=== PATIENT | female | born 1960 | race American Indian/Alaskan Native ===

== ENCOUNTER 2017-01-15 14:42 | Emergency (ER) | payer SELFPAY ==
--- NOTE | 2017-01-15 15:16 | Emergency Department Report ---
Stated Complaint: HEADACHE/COUGHING Time Seen by Provider: 01/15/17 15:11 - HPI History of Present Illness: PT c/o lower back pain Productive cough and headache - ROS Review of Systems: + clear urine + edema to R knee, + bere ankle edema + sob + 9/10 headache - Exam Physical Exam: GCS 15 dry cough noted no acute resp distress MSE screening note: Focused history and physical exam performed. Due to findings the following was ordered: ct, xr, lab ED Disposition for MSE Condition: Stable
[2017-01-15] MEDS: TYLENOL PO ONE (15:20)
[2017-01-15] MEDS ORDERED: TYLENOL ONE (15:23)
[2017-01-15 15:50] LABS: Basophils % (Auto) 0.4 % (0.0-1.8); Eosinophils % (Auto) 0.6 % (0.0-4.3); Hematocrit 39.3 % (30.3-42.9); Hemoglobin 12.5 gm/dl (10.1-14.3); Mean Corpuscular HGB Conc 32 % (30-34); Mean Corpuscular Hemoglobin 25 pg (28-32); Mean Corpuscular Volume 79 fl (79-97); Platelet Count 237 K/mm3 (140-440); Red Blood Count 4.96 M/mm3 (3.65-5.03); Red Cell Distribution Width 16.1 % (13.2-15.2); White Blood Count 6.9 K/mm3 (4.5-11.0)
[2017-01-15 16:06] LABS: Alanine Aminotransferase 9 units/L (7-56); Albumin 3.8 g/dL (3.9-5); Albumin/Globulin Ratio 1.4 %; Alkaline Phosphatase 76 units/L (35-129); Anion Gap 18 mmol/L; Blood Urea Nitrogen 5 mg/dL (7-17); Calcium 8.7 mg/dL (8.4-10.2); Carbon Dioxide 25 mmol/L (22-30); Chloride 100.4 mmol/L (98-107); Glucose 179 mg/dL (65-100); Potassium 4.1 mmol/L (3.6-5.0); Sodium 139 mmol/L (137-145); Total Protein 6.6 g/dL (6.3-8.2)
[2017-01-15 16:47] LABS: Bilirubin,Urine NEG (Negative); Blood,Urine SM (Negative); Ketones,Urine NEG (Negative); Leukocyte Esterase,Urine MOD (Negative); Mucus,Urine FEW /HPF; Nitrite,Urine NEG (Negative); Urobilinogen,Urine < 2.0 mg/dL (<2.0)
--- NOTE | 2017-01-15 16:58 | Cat Scan Report ---
FINAL REPORT EXAM: CT HEAD/BRAIN WO CON HISTORY: htn, headache, lightheaded TECHNIQUE: CT head without contrast PRIORS: None. FINDINGS: No acute intra-axial or extra-axial hemorrhage is identified. There is no evidence of midline shift or mass effect. The ventricles and sulci are within normal limits. Sosa-white matter differentiation is intact. No acute parenchymal abnormalities seen. There is a focal hypodense density left periventricular white matter measuring 0.6 centimeters likely reflecting a remote lacunar infarct Bony calvarium is grossly intact. Visualized portions of the mastoids and paranasal sinuses are unremarkable. IMPRESSION: Remote lacunar infarct within the left periventricular white matter No acute abnormality identified
[2017-01-16 00:31] VITALS: BP 171/76
--- NOTE | 2017-01-16 00:36 | Emergency Department Report ---
ED Headache HPI - General Chief Complaint: Headache Stated Complaint: HEADACHE/COUGHING Time Seen by Provider: 01/15/17 15:11 Source: patient - History of Present Illness Initial Comments: 56-year-old female history of diabetes and high blood pressure presented with headache started yesterday. Patient also complaining of cough and shortness of breath. No other complaint. Patient denied any nausea or vomiting no diarrhea no abdominal pain or chest pain. Quality: moderate Recent Head Trauma: no recent headache/trauma Associated Symptoms: denies symptoms Allergies/Adverse Reactions: Allergies No Known Allergies Allergy (Verified 02/14/15 06:35) Home Medications: Ambulatory Orders metFORMIN [Glucophage] 500 mg PO QDAY #30 tab 02/14/15 glipiZIDE [Glucotrol] 5 mg PO BID #60 tablet 04/23/15 Levofloxacin [Levaquin TAB] 500 mg PO QDAY #7 tablet 01/16/17 P-Ephed HCl/Codeine/Guaifen [Cheratussin DAC 30-10-100 mg/5 ml] 10 ml PO Q4H PRN #100 ml 01/16/17 ED Review of Systems ROS: Stated complaint: HEADACHE/COUGHING Other details as noted in HPI Comment: All other systems reviewed and negative Constitutional: fever. denies: chills Respiratory: cough, shortness of breath. denies: SOB with exertion, SOB at rest Cardiovascular: denies: chest pain, palpitations Gastrointestinal: denies: abdominal pain, nausea, vomiting ED Past Medical Hx - Past Medical History Hx Diabetes: Yes (noncompliant with metformin) Additional medical history: Cholelithiasis,viral meningitis - Social History Smoking Status: Never Smoker Substance Use Type: None - Medications Home Medications: Home Medications Medication Instructions Recorded Confirmed Last Taken Type metFORMIN [Glucophage] 500 mg PO QDAY #30 tab 02/14/15 04/23/15 04/21/15 Rx glipiZIDE [Glucotrol] 5 mg PO BID #60 tablet 04/23/15 Unknown Rx Levofloxacin [Levaquin TAB] 500 mg PO QDAY #7 tablet 01/16/17 Unknown Rx P-Ephed HCl/Codeine/Guaifen 10 ml PO Q4H PRN #100 ml 01/16/17 Unknown Rx [Cheratussin DAC 30-10-100 mg/5 ml] ED Physical Exam - General Limitations: No Limitations General appearance: alert - Head Head exam: Present: atraumatic - Eye Eye exam: Present: normal appearance - ENT ENT exam: Present: normal exam - Neck Neck exam: Present: normal inspection, full ROM. Absent: tenderness, meningismus, lymphadenopathy, thyromegaly - Respiratory Respiratory exam: Present: decreased breath sounds, prolonged expiratory. Absent: respiratory distress, wheezes, rales, rhonchi, stridor - Cardiovascular Cardiovascular Exam: Present: regular rate, normal rhythm, normal heart sounds - GI/Abdominal GI/Abdominal exam: Present: soft. Absent: distended, tenderness, guarding, rebound, rigid, mass, pulsatile mass - Back Exam Back exam: Present: normal inspection. Absent: CVA tenderness (R), CVA tenderness (L) - Neurological Exam Neurological exam: Present: alert, oriented X3, CN II-XII intact, normal gait, reflexes normal. Absent: motor sensory deficit - Skin Skin exam: Present: warm, intact, normal color ED Course Vital Signs 01/15/17 01/15/17 01/15/17 15:13 15:20 23:06 Temperature 99.3 F 100.1 F H Pulse Rate 86 88 Respiratory 20 18 20 Rate Blood Pressure 165/74 165/73 Blood Pressure [Right] O2 Sat by Pulse 95 98 Oximetry 01/16/17 00:30 Temperature 102.5 F H Pulse Rate 100 H Respiratory 16 Rate Blood Pressure Blood Pressure 171/76 [Right] O2 Sat by Pulse 100 Oximetry - Reevaluation(s) Reevaluation #1: 01/16/17 01:55 Patient stated that she is feeling much better will discharge home with Levaquin and follow-up as a primary care physician. ED Medical Decision Making - Lab Data Result diagrams: 01/15/17 15:31 01/15/17 15:31 Critical care attestation.: If time is entered above; I have spent that time in minutes in the direct care of this critically ill patient, excluding procedure time. ED Disposition Clinical Impression: Headache, Acute bronchitis, UTI (urinary tract infection) Disposition: - TO HOME OR SELFCARE Is pt being admited?: No Does the pt Need Aspirin: No Condition: Stable Instructions: Acute Bronchitis (ED), Urinary Tract Infection in Women (ED) Referrals: PRIMARY CARE, [Primary Care Provider] - 3-5 Days
[2017-01-16] MEDS: TORADOL IV ONE (00:47)
[2017-01-16] MEDS: LEVAQUIN 750MG/150ML 750 MG/150 ML BAG IV ONE (00:47)
[2017-01-16] MEDS: ATROVENT IH ONE (00:52)
[2017-01-16] MEDS: XOPENEX IH ONE (00:55)
--- NOTE | 2017-01-16 08:35 | XRay Report ---
ROUTINE CHEST, TWO VIEWS: History: Cough and shortness of breath. PA and lateral views demonstrate the heart and mediastinal contour to be of normal size and shape. The lungs are clear and fully expanded and the soft tissues and bony structures are normal. IMPRESSION: Normal study.
== END 2017-01-16 02:28 | disposition home or self-care (01) ==
LOC: ED 14:42
DX: J20.9 Acute bronchitis, unspecified (principal); N39.0 Urinary tract infection, site not specified; R51 Headache; E11.9 Type 2 diabetes mellitus without complications
CPT/HCPCS: 36415; 70450; 71020; 80053; 81001; 83880; 84484; 85025; 93005; 93010; 94640; 96365; 96375; 99285; J1885; J1956

== ENCOUNTER 2017-06-27 18:59 | Emergency (ER) | payer SELFPAY ==
[2017-06-28] MEDS ORDERED: CATAPRES PO ONE (03:15)
[2017-06-28 03:47] LABS: Basophils # (Auto) 0.1 K/mm3 (0.0-0.1); Basophils % (Auto) 0.8 % (0.0-1.8); Eosinophils # (Auto) 0.1 K/mm3 (0.0-0.4); Eosinophils % (Auto) 0.8 % (0.0-4.3); Hematocrit 37.4 % (30.3-42.9); Hemoglobin 12.4 gm/dl (10.1-14.3); Lymphocytes # (Auto) 4.4 K/mm3 (1.2-5.4); Lymphocytes % (Auto) 53.8 % (13.4-35.0); Mean Corpuscular HGB Conc 33 % (30-34); Mean Corpuscular Hemoglobin 26 pg (28-32); Mean Corpuscular Volume 79 fl (79-97); Monocytes # (Auto) 0.5 K/mm3 (0.0-0.8); Monocytes % (Auto) 5.7 % (0.0-7.3); Platelet Count 268 K/mm3 (140-440); Red Blood Count 4.73 M/mm3 (3.65-5.03); Red Cell Distribution Width 16.1 % (13.2-15.2)
[2017-06-28 03:54] LABS: Alanine Aminotransferase 8 units/L (7-56); Albumin 3.9 g/dL (3.9-5); BUN/Creatinine Ratio 17; Blood Urea Nitrogen 10 mg/dL (7-17); Calcium 9.2 mg/dL (8.4-10.2); Hemolysis Index 3
--- NOTE | 2017-06-28 04:31 | Ultrasound Report ---
FINAL REPORT EXAM: US TRANSVAGINAL HISTORY: pelvic pain, vaginal bleeding TECHNIQUE: Routine transvaginal imaging was obtained of the pelvis. FINDINGS: The uterus is enlarged and anteverted measuring 12.9 cm x 6.8 cm x 7.8 cm. The endometrium is markedly thickened measuring 23.1 mm in thickness. The echotexture of the endometrium is inhomogeneous. Free fluid is not seen. The ovaries are not adequately seen for evaluation. IMPRESSION: Enlarged uterus with abnormally thickened endometrium measuring 23.1 mm in thickness. Underlying endometrial hyperplasia/carcinoma cannot be excluded. Ovaries are not identified. No evidence of free fluid.
--- NOTE | 2017-06-28 04:32 | Ultrasound Report ---
FINAL REPORT EXAM: US PELVIC COMPLETE HISTORY: pelvic pain, vaginal bleeding TECHNIQUE: Transabdominal imaging was obtained of the pelvis. FINDINGS: The uterus is enlarged and anteverted measuring 12.9 cm x 6.8 cm x 7.8 cm. There is abnormal thickening of the endometrium measuring 23.1 millimeters. The endometrium has an inhomogeneous appearance. The ovaries are not seen. Free fluid is not identified. IMPRESSION: Enlarged uterus with abnormal thickening of the endometrium. Underlying endometrial hyperplasia/carcinoma cannot be excluded.
[2017-06-28] MEDS ORDERED: NACL ONE (06:08)
[2017-06-28 06:20] VITALS: BP 133/64
--- NOTE | 2017-06-28 06:36 | Emergency Department Report ---
HPI - General Chief Complaint: Abdominal Pain Time Seen by Provider: 06/28/17 03:03 - HPI HPI: This is a 57 year-old female presents to the emergency department with a few complaints. The main reason she came in was secondary to some stress and/or anxiety she was experiencing. The patient says that she has been having a stressful time at work anyways, but today she was accused of stealing $19 from the [employer], which she says she did not do, and it led to her getting fired. At this point she says that she got very dizzy and had to sit down. 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 At this point her picked her up and brought her to the emergency department. The patient also complains of some lower abdominal and/or pelvic mild discomfort and some vaginal bleeding. She says that she has not gone through menopause but does not have full regular menstrual cycles. She says that the bleeding amount is moderate to large. She has not taken anything for her symptoms. Presentation. She presents with some elevated blood pressure and says she has a history of this but does not take any medication. She also has a history of diabetes for which she is on metformin and glipizide. She does not have a primary care physician or [facility] COND[facility]ER ATTENDANT. ED Past Medical Hx - Past Medical History Hx Diabetes: Yes (noncompliant with metformin) Additional medical history: Cholelithiasis,viral meningitis - Surgical History Past Surgical History?: No - Social History Smoking Status: Never Smoker Substance Use Type: None - Medications Home Medications: Home Medications Medication Instructions Recorded Confirmed Last Taken Type metFORMIN [Glucophage] 500 mg PO QDAY #30 tab 02/14/15 04/23/15 04/21/15 Rx glipiZIDE [Glucotrol] 5 mg PO BID #60 tablet 04/23/15 Unknown Rx Levofloxacin [Levaquin TAB] 500 mg PO QDAY #7 tablet 01/16/17 Unknown Rx Pseudoephed/Codeine/Guaifen 10 ml PO Q4H PRN #100 ml 01/16/17 Unknown Rx [Cheratussin DAC 30-10-100 mg/5 ml] ED Review of Systems ROS: Stated complaint: DIZZINESS/VAGINAL BLEEDING Other details as noted in HPI Comment: All other systems reviewed and negative Constitutional: denies: chills, fever Eyes: denies: eye pain, eye discharge, vision change ENT: denies: ear pain, throat pain Respiratory: denies: cough, shortness of breath, wheezing Cardiovascular: denies: chest pain, palpitations Gastrointestinal: abdominal pain. denies: nausea, vomiting Genitourinary: other (vaginal bleeding). denies: dysuria Musculoskeletal: denies: back pain, joint swelling, arthralgia Skin: denies: rash, lesions Neurological: other (dizziness). denies: headache Psychiatric: anxiety. denies: suicidal thoughts Physical Exam - Physical Exam Vital Signs: Vital Signs 06/27/17 06/28/17 06/28/17 19:28 02:57 03:01 Temperature 98.8 F Pulse Rate 85 81 76 Respiratory 16 17 14 Rate Blood Pressure 169/69 180/73 O2 Sat by Pulse 99 93 Oximetry 06/28/17 06/28/17 06/28/17 03:08 03:09 03:11 Temperature 98.3 F Pulse Rate 73 Respiratory 16 12 Rate Blood Pressure 180/73 O2 Sat by Pulse 99 100 Oximetry 06/28/17 06/28/17 06/28/17 03:21 03:29 05:57 Temperature Pulse Rate 70 96 H Respiratory 9 L Rate Blood Pressure 180/73 195/90 135/56 O2 Sat by Pulse 99 Oximetry 06/28/17 06:00 Temperature Pulse Rate Respiratory Rate Blood Pressure 133/64 O2 Sat by Pulse Oximetry Physical Exam: GENERAL: The patient is well-developed well-nourished. HENT: Normocephalic. Atraumatic. Patient has moist mucous membranes. EYES: Extraocular motions are intact. Pupils equal reactive to light bilaterally. No nystagmus. NECK: Supple. Trachea is midline. CHEST/LUNGS: Clear to auscultation. There is no respiratory distress noted. HEART/CARDIOVASCULAR: Regular. There is no tachycardia. There is no murmur. ABDOMEN: Abdomen is soft, nontender. Patient has normal bowel sounds. There is no abdominal distention. SKIN: Skin is warm and dry. NEURO: The patient is awake, alert, and oriented. The patient is cooperative. The patient has no focal neurologic deficits. The patient has normal speech. Cranial nerves II through XII grossly intact. MUSCULOSKELETAL: There is no tenderness or deformity. There is no limitation range of motion. There is no evidence of acute injury. : Deferred ED Course Vital Signs 06/27/17 06/28/17 06/28/17 19:28 02:57 03:01 Temperature 98.8 F Pulse Rate 85 81 76 Respiratory 16 17 14 Rate Blood Pressure 169/69 180/73 O2 Sat by Pulse 99 93 Oximetry 06/28/17 06/28/17 06/28/17 03:08 03:09 03:11 Temperature 98.3 F Pulse Rate 73 Respiratory 16 12 Rate Blood Pressure 180/73 O2 Sat by Pulse 99 100 Oximetry 06/28/17 06/28/17 06/28/17 03:21 03:29 05:57 Temperature Pulse Rate 70 96 H Respiratory 9 L Rate Blood Pressure 180/73 195/90 135/56 O2 Sat by Pulse 99 Oximetry 06/28/17 06:00 Temperature Pulse Rate Respiratory Rate Blood Pressure 133/64 O2 Sat by Pulse Oximetry ED Medical Decision Making - Lab Data Result diagrams: 06/28/17 03:21 06/28/17 03:21 - Radiology Data Radiology results: report reviewed, image reviewed interpreted by me: Abdominal x-ray shows nonspecific bowel gas. There is a large amount of stool. There are 2 radiopaque areas to the right upper quadrant of the abdomen that could be gallstones EXAM: US TRANSVAGINAL HISTORY: pelvic pain, vaginal bleeding TECHNIQUE: Routine transvaginal imaging was obtained of the pelvis. FINDINGS: The uterus is enlarged and anteverted measuring 12.9 cm x 6.8 cm x 7.8 cm. The endometrium is markedly thickened measuring 23.1 mm in thickness. The echotexture of the endometrium is inhomogeneous. Free fluid is not seen. The ovaries are not adequately seen for evaluation. IMPRESSION: Enlarged uterus with abnormally thickened endometrium measuring 23.1 mm in thickness. Underlying endometrial hyperplasia/carcinoma cannot be excluded. Ovaries are not identified. No evidence of free fluid. Transcribed By: RB Dictated By: DANNY YATES MD Electronically Authenticated By: DANNY YATES MD Signed Date/Time: 06/28/17 0027 - Medical Decision Making Patient presents after what appears to have been a stress reaction to her job and being fired. Once here she does not have any focal, motor or sensory deficits in her cranial nerves are intact. She remained this way, awake and alert, throughout her ED course and I did not feel that CT imaging of the head was necessary at this time. Her main complaint after the stress was some lower abdominal and pelvic discomfort and vaginal bleeding. The patient understood that I was the only physician here in the evening to do an examination but declined a pelvic exam as she wanted a female doctor to do it. She says that the bleeding has slowed up some. Transvaginal ultrasound was done and showed some thickened endometrium but they were unable to see the ovaries secondary to bowel gas. Abdominal x-ray showed nonspecific nonobstructive bowel gas, stool and possibly some gallstones. Patient did not want any CT imaging of the abdomen and pelvis at this time and she says she is feeling improved and since the x-ray is unremarkable I agree. She presented with elevated blood pressure and it came down with some Catapres. The patient does have some movement to make changes with her diet and/or lifestyle and prefers to do this rather than starting a blood pressure medication. The patient admits that she is noncompliant with following up with primary care screening/preventative medicine. She is encouraged to see a primary care physician and RET[employer] CONDENSER ATTENDANT. She understands that there is a need to see a ORTHODONTIC TREATMENT COORDINATOR secondary to the FINDINGS OF THICKENED ENDOMETRIUM AND HER VAGINAL BLEEDING TO RULE OUT MALIGNANCY. She will return to the ER with any worsening of her symptoms or any acute distress. - Differential Diagnosis fibroids, malignancy, dysfunctional uterine bleeding, anxiety, conversion d Critical Care Time: No Critical care attestation.: If time is entered above; I have spent that time in minutes in the direct care of this critically ill patient, excluding procedure time. ED Disposition Clinical Impression: Stress at work, Menorrhagia with irregular cycle, Dysfunctional uterine bleeding, Endometrial hyperplasia Hypertension Qualifiers: Hypertension type: essential hypertension Qualified Code(s): I10 - Essential ( primary) hypertension Disposition: DC-01 TO HOME OR SELFCARE Is pt being admited?: No Condition: Stable Instructions: Dysfunctional Uterine Bleeding (ED), Stress (ED), Abdominal Pain (ED), Menorrhagia (ED), Hypertension (ED), Dizziness (ED) Additional Instructions: Please follow up with a primary care physician in the next few days. I have also given you a referral for some local RET[facility] CONDENSER ATTENDANT group to follow up regarding your thickened endometrium and irregular vaginal bleeding. Return to the emergency Department with any worsening of your symptoms or any acute distress. Try and stay away from foods that are high in salt and caffeinated products to help with your blood pressure. Keep a blood pressure log. Referrals: PRIMARY CAREMD [Primary Care Provider] - 3-5 Days [facility] [Outside] - 3-5 Days [facility] [Provider Group] - 3-5 Days [facility]ORTHODONTIC TREATMENT COORDINATOR [facility] [Provider Group] - 3-5 Days Time of Disposition: 06:38
--- NOTE | 2017-06-28 06:40 | XRay Report ---
FINAL REPORT EXAM: XR ABDOMEN 2V HISTORY: Abd pain TECHNIQUE: Three radiographs of the abdomen and pelvis were obtained. FINDINGS: There is a large amount retained feces in the colon. The bowel gas pattern otherwise is unremarkable. There are 2 laminated calcifications in the right upper quadrant compatible with gallstones. The skeletal structures do not show any acute changes. IMPRESSION: Large amount retained feces in the colon. Otherwise unremarkable bowel gas pattern. Gallstones.
== END 2017-06-28 06:57 | disposition home or self-care (01) ==
LOC: ED 18:59
DX: N85.00 Endometrial hyperplasia, unspecified (principal); N92.0 Excessive and frequent menstruation with regular cycle; E11.9 Type 2 diabetes mellitus without complications; Z56.3 Stressful work schedule; Z91.14 Patient's other noncompliance with medication regimen
CPT/HCPCS: 36415; 74019; 76830; 76856; 80053; 82962; 85025; 99285

== ENCOUNTER 2017-11-06 02:02 | Emergency (ER) | payer OTHER ==
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
[2017-11-06] MEDS ORDERED: LIDODERM 5% TD ONE (04:45)
[2017-11-06 04:46] VITALS: BP 144/50
== END 2017-11-06 07:00 | disposition home or self-care (01) ==
LOC: ED 02:02
DX: G89.29 Other chronic pain (principal); M54.5 Low back pain; C55 Malignant neoplasm of uterus, part unspecified; E11.9 Type 2 diabetes mellitus without complications; Z79.84 Long term (current) use of oral hypoglycemic drugs
CPT/HCPCS: 99283

== ENCOUNTER 2017-11-06 10:37 | Emergency (ER) | payer OTHER ==
[2017-11-06 11:28] LABS: Basophils % (Auto) 0.5 % (0.0-1.8); Eosinophils % (Auto) 0.7 % (0.0-4.3); Hemoglobin 9.7 gm/dl (10.1-14.3); Lymphocytes # (Auto) 2.4 K/mm3 (1.2-5.4); Lymphocytes % (Auto) 35.4 % (13.4-35.0); Mean Corpuscular HGB Conc 32 % (30-34); Mean Corpuscular Volume 77 fl (79-97); Monocytes # (Auto) 0.3 K/mm3 (0.0-0.8); Monocytes % (Auto) 4.9 % (0.0-7.3); Platelet Count 345 K/mm3 (140-440); Red Blood Count 3.89 M/mm3 (3.65-5.03); Red Cell Distribution Width 15.6 % (13.2-15.2)
[2017-11-06 11:34] LABS: Mean Corpuscular Hemoglobin 25 pg (28-32)
[2017-11-06 11:37] LABS: INR 0.91 (0.87-1.13)
[2017-11-06 11:38] LABS: BUN/Creatinine Ratio 12; Blood Urea Nitrogen 6 mg/dL (7-17); Calcium 9.4 mg/dL (8.4-10.2); Hemolysis Index 0; Partial Thromboplastin Time 29.8 Sec. (24.2-36.6)
[2017-11-06] MEDS ORDERED: SUBLIMAZE IM ONE (11:57)
[2017-11-06] MEDS ORDERED: ZOFRAN IM ONE (11:57)
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
--- NOTE | 2017-11-06 14:24 | Cat Scan Report ---
CT PELVIS WITHOUT CONTRAST History: Sacral pain, history of uterine cancer. Technique: Helical CT with sagittal and coronal reformatted images. Findings: A soft tissue density mass measuring 5.0 x 2.8 x 3.3 cm erodes into the inferior sacrum just above the coccyx. This appears to represent a metastatic lesion which is probably associated with the patient's history of uterine cancer. The remainder of the sacrum and pelvic bones are intact. No evidence for additional suspicious lesion or fracture. The uterus appears mildly enlarged. The adnexa and bladder are unremarkable. No pelvic fluid collection or adenopathy is identified. IMPRESSION: Soft tissue density mass eroding into the lower sacrum which is presumably secondary to metastatic disease.
[2017-11-06] MEDS ORDERED: DURAGESIC TD ONE (16:00)
[2017-11-06 16:29] VITALS: BP 147/96
== END 2017-11-06 16:59 | disposition home or self-care (01) ==
LOC: ED 10:37
DX: C79.51 Secondary malignant neoplasm of bone (principal); C55 Malignant neoplasm of uterus, part unspecified; N93.9 Abnormal uterine and vaginal bleeding, unspecified; E11.9 Type 2 diabetes mellitus without complications
CPT/HCPCS: 36415; 72192; 80048; 85025; 85610; 85730; 86850; 86900; 86901; 93005; 93010; 96372; 99284; J2405; J3010